=== PATIENT | male | born 1955 | race Caucasian/White ===

== ENCOUNTER 2024-08-31 21:52 | Emergency (ER) | payer MEDICARE ==
[~2024-08-31] VITALS: Ht 182.9 cm; Wt 68.5 kg
[2024-08-31] MEDS ORDERED: SODIUM CHLORIDE 0.9% 1,000 ML IV SCH (22:00)
[2024-08-31] MEDS ORDERED: Albuterol Sulf/Ipratropium 3 ML VIAL NEB ONE (22:00)
[2024-08-31] MEDS ORDERED: methylPREDNISolone sod succ 125 MG VIAL IV ONE (22:00)
[2024-08-31 22:44] LABS: MEAN CELL VOLUME 71.4 fl (80.0-94.0); MEAN PLATELET VOLUME 10.7 fl (9.6-12.3); NUCLEATED RED BLOOD CELL 0.1 10*3/uL (0.0-0.0); NUCLEATED RED BLOOD CELL 0.8 % (0.0-0.0); PLATELET COUNT AUTOMATED 345 10*3/uL (130-400); RED CELL DISTRI WIDTH 19.1 % (0-14.5); WHITE BLOOD COUNT 10.6 10*3/uL (4.8-10.8)
[2024-08-31] MEDS ORDERED: MORPHINE Sulfate 2 MG/ML SYR IV ONE (22:45)
[2024-08-31 22:55] LABS: ACT PARTIAL THROMBO TIME 20.5 SECONDS (20.0-32.1)
[2024-08-31 22:56] LABS: MANUAL DIFF REFLEX YES
[2024-08-31 22:58] LABS: ALKALINE PHOSPHATASE 92 U/L (46-116); BUN 26 mg/dl (9-23); CHLORIDE 106 mmol/L (98-107); POTASSIUM 4.8 mmol/L (3.4-5.1); SGPT/ALT 170 U/L (5-49); TOTAL PROTEIN 7.4 gm/dL (6.0-8.0)
[2024-08-31 23:03] LABS: HEMATOCRIT 20.7 % (42.0-52.0)
[2024-08-31 23:11] LABS: BASOPHILS 1 % (0-1); PLATELET SUFFICIENCY NORMAL (NORMAL); POLYCHROMASIA SLIGHT; TOTAL CELLS COUNTED 100 #CELLS
[2024-08-31 23:12] LABS: ACANTHOCYTES FEW; BURR CELLS FEW; OVALOCYTES FEW; SCHISTOCYTES FEW; TARGET CELLS FEW
[2024-08-31] MEDS ORDERED: Pantoprazole Sodium 40 MG in SODIUM CHLORIDE 0.9% 50 ML IV SCH (23:20)
[2024-08-31] MEDS ORDERED: NOREPINEPHRINE BITARTRATE/D5W 250 ML IV SCH (23:20)
[2024-08-31 23:28] VITALS: BP 97/57
[2024-08-31] MEDS ORDERED: Piperacillin Sodium/Tazobact 50 ML IV ONE (23:40)
[2024-08-31] MEDS ORDERED: Vancomycin Hydrochloride 250 ML IV ONE (23:40)
[2024-08-31 23:47] VITALS: BP 100/67
[2024-09-01 00:01] VITALS: BP 106/80
[2024-09-01] MEDS ORDERED: Midazolam Hydrochloride 2 MG/2 ML VIAL IV PRN (00:20)
[2024-09-01 00:21] LABS: ABG O2 SATURATION 99.8 % (94.0-98.0); ARTERIAL BLOOD GAS PH 7.255 (7.350-7.450)
[2024-09-01 00:22] LABS: ABG BASE EXCESS -15.6 mmol/L (-2.0-3.0)
[2024-09-01 00:25] LABS: ARTERIAL BLOOD GAS PO2 449.7 mmHg (83.0-108.0)
[2024-09-01] MEDS ORDERED: Pantoprazole Sodium 40 MG IV ONE (00:26)
[2024-09-01 00:32] VITALS: BP 112/74
[2024-09-01 01:31] VITALS: BP 94/53
[2024-09-01 01:45] VITALS: BP 95/61
[2024-09-01] MEDS ORDERED: SODIUM CHLORIDE 0.9% 50 ML BAG IV ONE (09:48)
== END 2024-09-01 02:47 | disposition short-term general hospital (02) ==
LOC: ED 21:52
PROVIDERS: Internal Medicine
DX: R07.89 Other chest pain (principal); I21.4 Non-ST elevation (NSTEMI) myocardial infarction; K92.1 Melena; D53.9 Nutritional anemia, unspecified; J12.1 Respiratory syncytial virus pneumonia; R74.01 Elevation of levels of liver transaminase levels; Z20.822 Contact with and (suspected) exposure to COVID-19